=== PATIENT | male | born 1985 | race Caucasian/White ===

== ENCOUNTER 2018-01-26 13:00 | Emergency (ER) | payer BC, OTHER ==
--- NOTE | 2018-01-26 13:28 | EDM.PDOC ---
ED HPI GENERAL MEDICAL PROBLEM - General Chief Complaint: Laceration Stated Complaint: STEPPED ON NAIL LEFT FOOT Time Seen by Provider: 01/26/18 13:12 Source of Information: Reports: Patient History Limitations: Reports: No Limitations - History of Present Illness INITIAL COMMENTS - FREE TEXT/NARRATIVE: stepped on nail; into his left foot; through thick boot and sock Is UTD with tetanus Small puncture noted Not diabetic Did clean it this am with soap, peroxide. Onset: Today - Related Data Allergies Allergy/AdvReac Type Severity Reaction Status Date / Time No Known Allergies Allergy Verified 01/26/18 13:14 Home Meds: Home Meds NK [No Known Home Meds] 01/26/18 [History] Past Medical History - Past Health History Medical/Surgical History: Denies Medical/Surgical History Social & Family History - Tobacco Use Smoking Status *Q: Current Every Day Smoker Years of Tobacco use: 15 Packs/Tins Daily: 1 - Caffeine Use Caffeine Use: Reports: None - Recreational Drug Use Recreational Drug Use: No ED ROS GENERAL - Review of Systems Review Of Systems: ROS reveals no pertinent complaints other than HPI. ED EXAM, SKIN/RASH Exam: See Below Exam Limited By: No Limitations General Appearance: Alert, WD/WN, No Apparent Distress Respiratory/Chest: No Respiratory Distress Peripheral Pulses: 4+: Posterior Tibial (L), Posterior Tibial (R), Dorsalis Pedis (L), Dorsalis Pedis (R) Extremities: Normal Inspection, Normal Range of Motion, Non-Tender, Other (left foot, plantar, ball of foot, small puncture, no bleeding.) Course - Vital Signs Last Recorded V/S: Last Vital Signs Temp 97.6 F 01/26/18 13:17 Pulse 94 01/26/18 13:17 Resp 15 01/26/18 13:17 BP 140/86 01/26/18 13:17 Pulse Ox 100 01/26/18 13:17 Departure - Departure Time of Disposition: 13:26 Disposition: Home, Self-Care 01 Condition: Good Clinical Impression: Puncture wound - Discharge Information Instructions: Puncture Wound, [id number] Referrals: PCP,None [Primary Care Provider] - Forms: ED Department Discharge Additional Instructions: Keep clean and dry Elevate Watch for infection, (streaking, discharge, fever) Tylenol/motrin for discomfort FU as needed Ice when able, 15 minutes at a time with barrier. - Problem List & Annotations (1) Puncture wound SNOMED Code(s): 030639812 Code(s): T14.8XXA - OTHER INJURY OF UNSPECIFIED BODY REGION, INITIAL ENCOUNTER Status: Acute Priority: Low Current Visit: Yes
== END 2018-01-26 13:44 | disposition home or self-care (01) ==
LOC: JP.ED 13:00
DX: S91.332A Puncture wound without foreign body, left foot, initial encounter (principal); F17.210 Nicotine dependence, cigarettes, uncomplicated; W45.0XXA Nail entering through skin, initial encounter
CPT/HCPCS: 99285